=== PATIENT | female | born 1950 | race Caucasian/White ===

== ENCOUNTER → 2017-08-30 | Day surgery (SDC) | payer OTHER ==
[~2017-08-30] MED LIST: ARTIFICIAL TEARS OPTH OINT 3.5 APPLIC/3.5 GM TUBO ONE; BUPIVACAINE/EPINEPHRINE 0.5% PF 30 ML VIAL ONE; FLEX10TA OR; GLUCTAB PO; KETOROLAC TROMETHAMINE 30 MG/ML (IVP) VIAL IV PUSH ONE; LACTATED RINGER'S 1000 ML INJ 1,000 ML ONE; LEVO.05 PO; MEPERIDINE HCL 25 MG/ML VIAL ONE; MIDAZOLAM HCL 2 MG/2 ML VIAL ONE; MORPHINE SULFATE 4 MG/ML INJ ONE; ONDANSETRON HCL 4 MG/2 ML VIAL IV PUSH ONE; PROPOFOL 200 MG/20 ML AMP IV ONE; Z.0.NO CURRENT MEDS; ceFAZolin INJ 1,000 MG VIAL ONE
--- NOTE | 2017-08-30 18:24 | MP ---
cc: DALLIN MORALES M.D. DATE OF SURGERY 08/30/17 PREOPERATIVE DIAGNOSIS Left knee prepatellar bursitis. POSTOPERATIVE DIAGNOSIS Left knee prepatellar bursitis. SURGEON Owen Morales MD [employer] Staff PROCEDURE Left knee prepatellar bursectomy with placement of drain FINDINGS 100 mL of clear fluid. ESTIMATED BLOOD LOSS 200 mL ANESTHESIA General endotracheal anesthesia. TOURNIQUET TIME Zero minutes. PROCEDURE IN DETAIL The patient was brought back to operative theater. General anesthesia was administered. The patient received intravenous Ancef. The left lower extremity was prepped and draped in usual sterile fashion. There was fluctuance about the anterior aspect of the knee. We made standard incision over the anterior aspect of the knee. We expressed approximately 100 mL of clear fluid with no signs of infection. We identified that there was very significant bursal tissue along with widening of essentially a cavity in the bursal region which extended both medially and laterally about the knee. The bursal tissue was very thickened and smooth within this cavity. We then excised the bursa in totality both medially, laterally, proximally and distally. We also excised some of the thickened tissue that was on the undersurface of the skin. The bursal cavity was adherent to this area as well. This gave a more raw appearing underlying tissue which should help with healing of the skin down to this area to reduce the chance of recurrence. We confirmed that the quadriceps tendon and the patella tendon were intact. We did excise some bursal tissue just medial to the patella tendon which ultimately was closed with some 0 Vicryl. This was in the medial retinacular region, although we did not enter into the knee joint itself. We thoroughly irrigated and then we placed a flat size 7 drain into the pre-patella space. We closed skin with 2-0 Vicryl followed by 2-0 nylon and then we also sewed the drain in with 2-0 nylon. The leg was dressed. There was a little sponge placed around the drain to protect the surrounding skin. POSTOPERATIVE PLAN Prior to surgery, I explained to the patient how to do drain care. She can weightbear as tolerated, although we did tell her to avoid significant flexion about the knee until the drain is removed. The patient will keep a count of the output of the drainage. She will call the office in a couple days to let me know what the drain output has been and then we can decide when ultimately to take out the drain. MD MICHELLE Wang/ /2:42 PM /6:22 PM
== END | disposition home or self-care (01) ==
LOC: ESDC 12:05
PROVIDERS: ATTEND Orthopaedic Surgery
DX: M70.42 Prepatellar bursitis, left knee (principal)
CPT/HCPCS: 01320; 27340; 88304; J0690; J1885; J2175; J2250; J2270; J2405; J3010; J7120